=== PATIENT | male | born 1960 | race Caucasian/White ===

== ENCOUNTER → 2016-06-14 16:37 | Emergency (ER) | payer BC ==
[~2016-06-14 16:37] MED LIST: ZESTORETIC1 TA1 PO
== END | disposition home or self-care (01) ==
LOC: ER 16:37
DX: R05 Cough (principal); M79.1 Myalgia; I10 Essential (primary) hypertension; Z87.442 Personal history of urinary calculi; Z79.899 Other long term (current) drug therapy
CPT/HCPCS: 96372; 99283